=== PATIENT | female | born 1995 | race Two or more races ===

== ENCOUNTER 2019-03-01 21:32 | Emergency (ER) | payer SELFPAY ==
[~2019-03-01] VITALS: Ht 172.7 cm; Wt 69.0 kg
[2019-03-01 21:43] VITALS: BP 118/72
== END 2019-03-01 23:50 | disposition left against medical advice (07) ==
LOC: ER 21:32
DX: H57.11 Ocular pain, right eye (principal); Z53.21 Procedure and treatment not carried out due to patient leaving prior to being seen by health care provider